=== PATIENT | female | born 1990 | race Caucasian/White ===

== ENCOUNTER 2024-09-27 18:32 | Emergency (ER) | payer OTHER ==
[2024-09-27 19:03] VITALS: BP 107/63; PULSE 111
== END 2024-09-27 20:56 | disposition home or self-care (01) ==
LOC: VM.ED 18:32
DX: S20.212A Contusion of left front wall of thorax, initial encounter (principal); S40.812A Abrasion of left upper arm, initial encounter; S40.811A Abrasion of right upper arm, initial encounter; S80.812A Abrasion, left lower leg, initial encounter; S80.811A Abrasion, right lower leg, initial encounter; J45.909 Unspecified asthma, uncomplicated; Z88.0 Allergy status to penicillin; V89.9XXA Person injured in unspecified vehicle accident, initial encounter
CPT/HCPCS: 71101-LT; 99282; 99284; A9270-GY